=== PATIENT | male | born 1955 | race Caucasian/White ===

== ENCOUNTER 2019-11-03 10:31 | Inpatient (IN) | payer MEDICAID, MEDICARE ==
[2019-11-03] MEDS ORDERED: Haloperidol Lactate 5 mg/mL 1mL Vial ONE (22:34)
[2019-11-04 11:58] VITALS: BP 121/60
[2019-11-04] MEDS ORDERED: Maalox 30 mL Cup PO PRN (13:48)
[2019-11-04] MEDS ORDERED: Magnesium Hydroxide (MOM) 30 mL UDC PO PRN (13:51)
--- NOTE | 2019-11-04 14:11 | History & Physical ---
ADMIT DATE: 11/04/2019 CHIEF COMPLAINT: Suicidal. HISTORY OF PRESENT ILLNESS: We have a 64-year-old male with bipolar, dementia, who was transferred here for evaluation of suicidal ideation and dementia. No nausea, vomiting, abdominal pain, diarrhea. No fevers, chills, night sweats. No headaches or dizziness. PAST MEDICAL HISTORY: 1. Bipolar. 2. Mild dementia. PAST SURGICAL HISTORY: None. MEDICATIONS: List reviewed. ALLERGIES: None. PHYSICAL EXAMINATION: VITAL SIGNS: Temperature 97.4, pulse 47, respirations 20, blood pressure 121/60. HEENT: Normocephalic, atraumatic head exam. NECK: Supple. CARDIOVASCULAR: Regular rate and rhythm. LUNGS: Decreased breath sounds. ABDOMEN: Soft, nontender. EXTREMITIES: No edema, cyanosis or clubbing. ASSESSMENT AND PLAN: 1. Suicidal ideation. 2. Dementia. 3. Bipolar. The patient will continue with supportive care. Appreciate this consult from psychiatrist. [facility]# [id number]
[2019-11-04] MEDS ORDERED: GLUCAGON HCl 1 MG KIT IM PRN (18:56)
[2019-11-04] MEDS: INSULIN LISPRO SLIDING SCALE 100 UNITS/ML UNIT SUBQ SCH (21:25)
[2019-11-05] MEDS: INSULIN LISPRO SLIDING SCALE 100 UNITS/ML UNIT SUBQ SCH ×4 (06:30→21:51)
[2019-11-05] MEDS: Multivitamin Tab PO SCH (09:00)
--- NOTE | 2019-11-05 14:51 | Psychiatric Evaluation ---
DATE OF SERVICE: 11/05/2019 IDENTIFYING DATA: The patient is a 64-year-old male, living by himself. Information obtained directly interviewing the course the patient as well as reviewing the admission papers. JUSTIFICATION OF HOSPITALIZATION: The patient is admitted here on as a 5150 as a danger to self. CHIEF COMPLAINT: "I'm feeling down." HISTORY: The patient is alert and oriented. The patient is reported to have been voicing suicidal feelings. The patient is stating that there is spirts are down and during the interview, the patient is stating that he does not feel like taking any medications because he liked the natural stuff such as exercise and diet. The patient is stating that most of these psych medications that he has taken in the past made him to be dopey and sleepy and he states that he does not like that. The patient is stating that he has been on [place] and he is fully aware of the area and he wants to go back there when he is stabilized. He also tells that he does not have any family, most of the family has been moved out of state. PAST PSYCHIATRIC HISTORY: The patient had some psychiatric treatment for depression, but he is refusing to take medications. MEDICAL HISTORY AND PHYSICAL EXAMINATION: Requested by Dr. Ward. SUBSTANCE ABUSE HISTORY: The patient denies use of any drugs or alcohol. No legal problems are noted. No history of any physical or sexual abuse history. MENTAL STATUS EXAMINATION: The patient is a 64-year-old thin built, cooperative. Eye contact is fair. Mood is noted to be depressed. Affect is constricted. Insight and judgment are noted to be fair. Impulse control seems to be fair at this time. The patient is stating that he was feeling low and suicidal, but he states that he does not have any thoughts of taking his life. Now, the patient is not homicidal. The patient, however, is noted to be gravely disabled and has difficult time to cope with the stress. DIAGNOSES: AXIS I: Major depressive disorder, recurrent and moderate. AXIS II: None. AXIS III: As per Dr. Ward. IMMEDIATE TREATMENT PLAN: The patient is going to be observed on inpatient unit, provided with supportive psychotherapy. The patient is going to be encouraged to participate and verbalize the concerns. The patient is going to be suggested to be on antidepressant medications. ESTIMATED LENGTH OF STAY: 5-7 days. DISCHARGE CRITERIA: When he no longer a threat to self or others and be able to cope up with the stress. [facility]# [id number]
[2019-11-06] MEDS: INSULIN LISPRO SLIDING SCALE 100 UNITS/ML UNIT SUBQ SCH ×4 (06:37→21:00)
[2019-11-06] MEDS: Multivitamin Tab PO SCH (08:55)
--- NOTE | 2019-11-06 21:00 | Progress Notes ---
DATE: 11/06/2019 SUBJECTIVE: Staff was spoken to. The patient is interviewed. Mood is noted to be irritable. Affect is constricted. The patient is stating that he does not need to be on any medications. He will be better off. He does not want to be dropped out. The patient is stating that he has been trying his best to get some help in the groups in here. No side effects to the patient's medications are noted. ASSESSMENT: The patient is still depressed, but he does not want any help. PLAN: To continue the patient with the supportive therapy, encouraged the patient to verbalize the concerns rather than to act out. JOB# [id number]
[2019-11-07] MEDS: INSULIN LISPRO SLIDING SCALE 100 UNITS/ML UNIT SUBQ SCH ×4 (06:35→20:26)
[2019-11-07] MEDS: Multivitamin Tab PO SCH (09:08)
--- NOTE | 2019-11-07 13:39 | Progress Notes ---
DATE: 11/07/2019 PSYCHIATRIC PROGRESS NOTE SUBJECTIVE: Staff was spoken to. The patient is interviewed. Mood is noted to be irritable. Affect is constricted. The patient's insight and judgment are noted to be still impaired. Impulse control is noted to be limited. Coping skills are noted to be limited. The patient is stating that he is not in good spirits, but at the same time does not want to take any medications for his depression. The patient is stating that he is not suicidal, he is not homicidal. He wants to go back to [facility] to be there. The patient is stating that he is familiar with the place over there. The patient is currently on parole and does not want to talk about the reasons. ASSESSMENT: The patient is still depressed. PLAN: To continue the patient with the current medications and follow. JOB# [id number]
--- NOTE | 2019-11-07 13:56 | Consultation ---
DATE OF CONSULTATION: 11/06/2019 HISTORY OF PRESENT ILLNESS: The patient is a 64-year-old male. The following is by record review and by the patient's self report. The patient is being admitted on a 5150 as a danger to self. Upon interview, the patient reports that he is feeling down and very depressed. The patient states he does not want to be taking medications. The patient also endorsed having suicidal thoughts and feelings. The patient is referencing these feelings and thoughts as spirits. The patient states that he feels like he should be doing other holistic approaches to his depression. The patient states no specific plan with respect to suicidal ideation. The patient was able to verbally contract for safety at the time of this clinical interview. PAST MEDICAL HISTORY: Please see history and physical by Dr. Ward. PAST PSYCHIATRIC HISTORY: The patient has had treatment in the past for depression. The patient did not state what type of provider was involved in his care, i.e., psychiatrist or psychologist. The patient is refusing to take medications. SUBSTANCE ABUSE HISTORY: The patient states no history of alcohol, tobacco, illicit or recreational drug use. PSYCHOSOCIAL HISTORY: The patient states he lives by himself. The patient states he has no family involvement in his care. The patient states he lives in [place] and wants to return there. The patient states that he does not trust medical providers with his care and does not take medications. The patient stated no specific hindu affiliation. The patient states he has not worked in many years. He did not respond to the questions about educational history or family history. He denied any history of physical abuse or any current legal problems. MENTAL STATUS EXAMINATION: The patient appears to be his stated age. He is thinly built. Attitude is cooperative, but guarded. Eye contact is fair. Speech is spontaneous. Mood is depressed. Affect is mood congruent. Thought process shows to be depressogenic. The patient admits having suicidal thoughts, but denied any specific plan or intention. The patient has been isolative on the unit and has refused to take medications. Impulse control is limited, but fair. Sensorium is alert and oriented x 3. The patient is endorsing thoughts of hopelessness and helplessness as well. The patient's memory seems to be intact for immediate, short term and shelter dimension. The patient did not participate in the interpretation of proverbs. Insight is poor. Judgment is impaired. DIAGNOSTIC IMPRESSION: AXIS I: Major depressive disorder, recurrent, severe. AXIS II: Deferred. AXIS III: Per Dr. Ward. TREATMENT PLAN: The patient has been seen by Dr. Colin for psychiatric evaluation and for the patient's psychotropic medications. The patient will be provided supportive psychotherapy to include cognitive behavioral therapy to reduce the patient's depression and increase his coping strategies. We will provide coping skills and strategies for phase of life issues as well. We will provide a daily opportunity for the patient to verbally contract for safety, i.e., no self-harm. We will provide suicidal prevention interventions. We will encourage the patient through motivational enhancement for the patient to become compliant and stay compliant with all aspects of his care and treatment and specifically to accept treatment with an antidepressant medication. We will also discuss possible placement with the patient prior to his discharge. We will follow up in 2-3 days to continue the present treatment. Thank you, Dr. Colin, for this consult and the opportunity to participate with you in this patient's care. JOB# [id number] [place]
[2019-11-08] MEDS: INSULIN LISPRO SLIDING SCALE 100 UNITS/ML UNIT SUBQ SCH ×4 (06:42→20:44)
[2019-11-08] MEDS: Multivitamin Tab PO SCH ×2 (08:23→08:25)
--- NOTE | 2019-11-09 01:07 | Progress Notes ---
DATE: 11/08/2019 SUBJECTIVE: Staff was spoken to. The patient is interviewed. Mood is noted to be irritable. Affect is constricted. The patient's insight and judgment are noted to be still impaired. Impulse control seems to be fair. The patient is not presenting with any threats to harm self or others. The patient is stating that he does not want to take any medications. He is in need of one-on-one counseling. The patient is reported to have been on parole for being a sex offender and the patient is stating that he is familiar from [facility] that is where his tactical response group officer is there and he wants to go back. The patient is not presenting with any threats to harm self or others and the social science teacher is requested to look for placement for this patient. The patient is reluctant to go back to the same board and care where he was at before, but does not seem to have any more choice. The patient at this time is reluctant to take any antidepressant medication. JOB# [id number]
[2019-11-09] MEDS: INSULIN LISPRO SLIDING SCALE 100 UNITS/ML UNIT SUBQ SCH ×4 (06:49→21:08)
[2019-11-09] MEDS: Multivitamin Tab PO SCH (08:33)
--- NOTE | 2019-11-09 10:52 | Progress Notes ---
DATE: 11/08/2019 PSYCHOLOGY PROGRESS NOTE SUBJECTIVE: The patient is seen in his room and is interviewed. Case is discussed with staff. The patient presents as easily agitated. The patient states that he is not going to take the medication. The patient did respond to this ticket writer with respect to accepting individual psychotherapy. 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 The patient was previously at a board and care, but states he does not want to return there. OBJECTIVE: Mood is irritable and dysphoric. Affect is mood congruent and reactive. Thought process shows to be linear and logical; however, the patient continues to refuse medication. The patient denied any suicidal ideation, plan or intention. He denied any auditory or visual hallucinations. The patient is refusing medication and states he does not need to be taking psychotropic medication for his depression. The patient is asking to be discharged to himself. ASSESSMENT: The patient continues to appear as being depressed, but with no signs of self-harm. The patient is reluctant to take medication and is stating he does not want to return to his board and care. PLAN: We will continue with coping strategies for phase of life issues as well as remotivation for the patient to become compliant and stay compliant with all aspects of his care and treatment. We will follow up in 2 days to continue the present treatment if the patient remains on the unit. [facility]# [id number] [place]
--- NOTE | 2019-11-09 13:08 | Progress Notes ---
DATE: 11/09/2019 PSYCHIATRIC PROGRESS NOTE SUBJECTIVE: Staff was spoken to. The patient is interviewed. Mood is noted to be irritable. Affect is constricted. The patient is isolative and withdrawn. Denies any active hallucinations or delusions are noted. The patient is stating that he wants to go back to [place], because he does not have anyone he knows around here. silver spray worker has been spoken to and she states that the patient ____ has retired and there is going to be new one that is assuming responsibility. The patient has a board and care and the patient at this time is reluctant to comply with any of the medications. PLAN: To closely monitor the patient and I encouraged the patient to verbalize the concerns rather than to act out. JOB# [id number]
--- NOTE | 2019-11-09 16:06 | Internal Medicine Prog Note ---
Internal Medicine Subjective - Subjective Service Date: 11/09/19 Patient seen and examined:: without staff Patient is:: awake, interactive Per staff patient has:: no adverse event Internal Medicine Objective - Results Recent Labs: Laboratory Last Values POC Glucose 74 MG/DL (70 - 105) 11/09/19 06:12 - Physical Exam Vitals and I&O: Vital Signs Temp 97.9 F 11/09/19 14:00 Pulse 56 11/09/19 14:00 Resp 18 11/09/19 14:00 BP 106/65 11/09/19 14:00 Pulse Ox 96 11/09/19 14:00 Intake & Output 11/08/19 11/09/19 11/09/19 18:59 06:59 18:59 Intake Total 1000 240 650 Balance 1000 240 650 Intake: Oral 1000 240 650 Other: # Voids 4 98 # Bowel Movements 1 0 1 Stool Characteristics Soft Soft Soft Active Medications: Current Medications Acetaminophen (Tylenol) 650 mg PO Q4H PRN PRN Reason: Pain (Mild 1-3) Stop: 01/03/20 13:44 Al Hydrox/Mg Hydrox/Simethicone (Maalox) 30 ml PO Q4HR PRN PRN Reason: Heartburn Stop: 01/03/20 13:47 Dextrose (Glutose 40%) 18.75 gm PO PRN PRN PRN Reason: BS Below 70 if tolerate po Stop: 01/03/20 18:55 Glucagon (Glucagen) 1 mg IM PRN PRN PRN Reason: BS Below 70 if not tolerate po Stop: 01/03/20 18:55 Insulin Human Lispro (Humalog Insulin Sliding Scale) 0 units SUBQ ACHS ANAND; Protocol Stop: 01/03/20 20:59 Last Admin: 11/09/19 11:30 Dose: Not Given Magnesium Hydroxide (Milk Of Magnesia) 30 ml PO HS PRN PRN Reason: Constipation Stop: 01/03/20 13:50 Multivitamins/Vitamin C (Theragran) 1 tab PO DAILY ANAND Stop: 01/04/20 08:59 Last Admin: 11/09/19 08:33 Dose: Not Given General: alert HEENT: NC/AT Neck: Supple Lungs: CTAB Cardiovascular: RRR, Normal S1, Normal S2 Abdomen: soft, non-tender Extremities: clear Neurological: no change Internal Medicine Assmt/Plan - Assessment Assessment: 1. Dementia 2. Bipolar - Plan Plan: continue supportive care reviewed medical records and d/w r.n. discharge planning initiated Nutritional Asmnt/Malnutr-PDOC - Dietary Evaluation Malnutrition Findings (Please click <Entered> for more info): Nutritional Asmnt/Malnutrition Start: 11/08/19 13: 47 Text: Status: Complete Freq: Protocol: Document 11/08/19 14:08 SREEKANTH (Rec: 11/08/19 14:14 SREEKANTH [id number]) Nutritional Asmnt/Malnutrition Patient General Information Nutritional Screening Low Risk Diagnosis Psychosis Pertinent Medical Hx/Surgical Hx Bipolar, mild dementia Subjective Information Pt is a 64-year-old male admitted on 11/03 d/t suicidal ideation and dementia. Pt is eating an estimated 88% of meals Per Meal/Nutrition Activity Record. Dietary is currently providing an estimated 1800 kcals and 100 gm Pro, per Pt PO intake this is providing an estimated 1580 kcals and 88gm Pro to meet 85 % kcal and 100+% Pro needs- adequate. Spoke with pt nurse Kassie, pt does not like getting the Accu-checks and stated he is not diabetic. Recommending regular diet as pts POC Glucose levels are WNL and no Hx DM noted. Anthropometrics HT: 62 WT: 167 LB (75.9 kg) BMI: 21.46 (Normal) GI/ Skin Integrity GI: WNL, Soft, Flat BM: 11/06 x1 I/O: 1080/Not Noted Skin: WNL, Intact Nas: 22 Diet Order: [facility] Estimated Energy Needs: ( Geriatric, CBW) 8590-5678 kcals (25-30 kcals/ kg) 75-90 g Pro (1.0-1.2 g/kg) 5151-9749 ml (25-30 ml/kg) Pertinent Medications Glutose 40% (PRN), Glucagen ( PRN), INS-SS, MOM (PRN), Theragran Pertinent Labs 11/02: Hgb/Hct 12.0/35.8, BUN/ Cr 16/1.41, GFR 50 POC Glucose (last 24 hours): 71, 93, 78, 78 Nutritional Hx/Data Height 1.88 m Height (Calculated Centimeters) 188.0 Current Weight (lbs) 75.75 kg Weight (Calculated Kilograms) 75.7 Weight (Calculated Grams) 08739.9 [place] Body Weight 190 % [place] Body Weight 88 Body Mass Index (BMI) 21.4 Recent Weight Change No Weight Status Approriate GI Symptoms GI Symptoms None Last BM BM: 11/06 x1 Difficult in: None Skin Integrity/Comment: WNL, Intact Current %PO Good (75-100%) Estimated Nutritional Goals BEE in Kcals: Using Current wt Calories/Kcals/Kg 25-30 Kcals Calculated 6308-0913 Protein: Using Current wt Protein g/k.0-1.2 Protein Calculated 75-90 Fluid: ml 2655-4175 ml (25-30 ml/kg) Nutritional Problem 1. Problem Problem No nutrition diagnosis at this time. Etiology N/A Signs/Symptoms: N/A Malnutrition Related to Morbid Obesity Malnutrition related to morbid obesity No Intervention/Recommendation Comments Recommend regular diet. Expected Outcomes/Goals Expected Outcomes/Goals 1. PO intake to continue to meet 75% of estimated nutritional needs. 2. Monitor PO intake, wt, nutrition related labs, and skin integrity. 3. F/U as low risk in 7-10 days, 11/14-11/17.
[2019-11-10] MEDS: INSULIN LISPRO SLIDING SCALE 100 UNITS/ML UNIT SUBQ SCH ×4 (07:01→20:26)
[2019-11-10] MEDS: Multivitamin Tab PO SCH (08:58)
--- NOTE | 2019-11-10 21:00 | Progress Notes ---
DATE: 11/10/2019 PSYCHOLOGY PROGRESS NOTE SUBJECTIVE: The patient is seen in his room and is interviewed. Case is discussed with staff. The patient presents as agitated and irritable. The patient has been isolative and withdrawn according to the staff; however, the staff also indicates the patient has become impulsive with poor redirectability. 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 This has been corrected. The patient is not stating that he is a textile technical officer. He is stating he has a textile technical officer due to a case in the past. The patient was prosecuted as a sexual offender as reported by the patient. The patient states that he is going to accept a board and care placement. OBJECTIVE: Mood is agitated, anxious and irritable. Affect is broad and animated. Thought process is linear, but with marked tangentiality and flight of ideas at times. The patient had difficulty concentrating and responding to cognitive refocusing. The patient denied any suicidal ideation or homicidal ideation, plan or intention. The patient did state that he believes that he had rheumatic fever, which wiped out all of his Tenriism beliefs and therefore he is not Tenriism any longer. The patient is verbalizing somatic delusions. The patient is isolative most of the time and not participating in the milieu therapy. ASSESSMENT: The patient's psychosis, anxiety and depression persist. PLAN: The patient is being closely monitored. We encouraged the patient to verbalize his concerns versus acting out and provided remotivation for the patient to become compliant and to stay compliant with all aspects of his care and treatment. We provided reality testing as well as reality integration. We provided coping strategies for phase of life issues as well as for chronic severe mental illness. We encouraged the patient to appropriately interact with staff. We provided stress management to assist the patient in increasing his frustration tolerance and more appropriately responding to the caregivers. We will follow up in 2-3 days to continue the present treatment if the patient remains on the unit and is able to benefit from psychology services. JOB# [id number] [facility]
--- NOTE | 2019-11-10 23:36 | Progress Notes ---
DATE: 11/10/2019 SUBJECTIVE: "I am doing much better." The patient is alert and oriented. Mood is noted to be anxious. Insight and judgment at this time are noted to be improving. Impulse control seems to be fair. No side effects to the medications are noted. The patient has been able to verbalize the concerns rather than to act out. The patient is still insisting that he is not willing to take any medications at this time. ASSESSMENT: The patient is stabilizing. PLAN: To discharge the patient today for followup on outpatient basis. JOB# [id number]
[2019-11-11] MEDS: INSULIN LISPRO SLIDING SCALE 100 UNITS/ML UNIT SUBQ SCH (06:35)
[2019-11-11] MEDS: Multivitamin Tab PO SCH (09:03)
--- NOTE | 2019-11-11 10:17 | Discharge Summary ---
DATE OF DISCHARGE: 11/11/2019 IDENTIFYING DATA: The patient is a 64-year-old male, living at a board and care by himself. Information obtained by directly interviewing the patient as well as reviewing the admission papers. JUSTIFICATION OF HOSPITALIZATION: The patient is admitted on a 5150 as a danger to self. CHIEF COMPLAINT: "I'm feeling down." DIAGNOSES AT THE TIME ADMITTING DIAGNOSES: AXIS I: Major depressive disorder, recurrent and moderate. AXIS II: None. AXIS III: As per Dr. Ward. HOSPITAL COURSE AND RESPONSE TO TREATMENT: The patient has been observed on inpatient unit, provided with supportive psychotherapy. The patient has been closely monitored for his blood sugar. He is on insulin and glucagon. I encouraged the patient to verbalize the concerns. The patient has refused to comply with any of the medications stating that he wants to do ____ therapy rather than taking any medications. The patient is reported to be on probation. The patient was finally discharged on 11/11/2019 the care of the patrol community service officer, Jonnie. MENTAL STATUS EXAMINATION AT THE TIME OF DISCHARGE: The patient's mood is noted to be anxious. The patient is not suicidal or homicidal. Insight and judgment are noted to be fair at this time. Impulse control is also noted to be fair. The patient is motivated only to seek treatment rather than take any medications. The patient did not meet the criteria for inpatient hospitalization and hence the patient has been discharged. DIAGNOSES AT THE TIME OF THE DISCHARGE: AXIS I: Major depressive disorder, recurrent and moderate. AXIS II: None. AXIS III: As per Dr. Ward. AFTERCARE PLAN: The patient is discharged to self and is strongly encouraged to seek treatment on an outpatient basis. [facility]# [id number]
== END 2019-11-11 09:45 | DRG 885 ==
LOC: GERO 11-04 10:45
PROVIDERS: ADMIT Psychiatry & Neurology Psychiatry; ATTEND Psychiatry & Neurology Psychiatry
DX: F33.2 Major depressive disorder, recurrent severe without psychotic features (principal); R45.851 Suicidal ideations; F41.9 Anxiety disorder, unspecified; F03.90 Unspecified dementia, unspecified severity, without behavioral disturbance, psychotic disturbance, mood disturbance, and anxiety; Z79.899 Other long term (current) drug therapy
CPT/HCPCS: 82948-90; 83036-90; J1200; J1630